=== PATIENT | male | born 1935 | race Caucasian/White ===

== ENCOUNTER 2024-07-23 20:02 | Emergency (ER) | payer MEDICARE ==
[~2024-07-23] VITALS: Ht 167.6 cm; Wt 57.2 kg
[2024-07-23] MEDS ORDERED: TDAP [DIPH/PERTUSSIS/TET] 0.5 ML VIAL IM ONE (22:46)
[2024-07-23] MEDS: TDAP [DIPH/PERTUSSIS/TET] 0.5 ML VIAL IM ONE (22:50)
[2024-07-23] MEDS ORDERED: LIDOCAINE 1%-EPI 1:100,000 20 ML VIAL ONE (23:01)
[2024-07-24 00:19] VITALS: BP 182/74; TEMP 97.9; O2SAT 99
== END 2024-07-24 00:20 | disposition home or self-care (01) ==
LOC: ER 20:10
DX: S51.811A Laceration without foreign body of right forearm, initial encounter (principal); I25.10 Atherosclerotic heart disease of native coronary artery without angina pectoris; Z88.1 Allergy status to other antibiotic agents; Z88.2 Allergy status to sulfonamides; W18.39XA Other fall on same level, initial encounter; Y93.89 Activity, other specified; Y92.89 Other specified places as the place of occurrence of the external cause; Y99.8 Other external cause status
CPT/HCPCS: 99283; 12004; 90471; 90715; J3490